=== PATIENT | male | born 1950 | race Caucasian/White ===

== ENCOUNTER 2016-11-18 05:31 | Day surgery (SDC) | payer BC ==
[~2016-11-18] VITALS: Ht 177.8 cm; Wt 85.5 kg
[~2016-11-18 05:31] MED LIST: LANOXIN 0.25M0.25 MG PO; LIPITOR 10MG10 MG PO; SYNTHROID0.05 MG/TA PO
[2016-11-18 06:03] VITALS: BP 145/70; PULSE 57; TEMP 97.4
[2016-11-18] MEDS ORDERED: MULTI VITAMINS1 TAB PO (06:17)
[2016-11-18] MEDS ORDERED: THE MEDICINE S200 M2 PO (06:18)
[2016-11-18] MEDS ORDERED: GLUCOSAMINE & C1 CA1 PO (06:18)
[2016-11-18] MEDS ORDERED: VITAMIN C500 MG PO (06:19)
[2016-11-18 08:45] VITALS: BP 151/83; PULSE 66; TEMP 97.3
[2016-11-18] MEDS ORDERED: NORCO 325 MG-51 TAB PO (08:58)
[2016-11-18] MEDS ORDERED: PYRIDIUM 100MG100 MG PO (08:58)
[2016-11-18 09:00] VITALS: BP 143/83; PULSE 65
== END 2016-11-18 09:55 | disposition home or self-care (01) ==
LOC: SDCO 05:31
DX: D09.0 Carcinoma in situ of bladder (principal); R31.9 Hematuria, unspecified; I48.91 Unspecified atrial fibrillation; F17.210 Nicotine dependence, cigarettes, uncomplicated; E78.5 Hyperlipidemia, unspecified; I10 Essential (primary) hypertension
CPT/HCPCS: C1769; C2617; J1100; J1885; J2704; J3010; J7120; Q9967

== ENCOUNTER 2017-03-20 13:48 | Day surgery (SDC) | payer BC ==
[2017-03-20] VITALS (7 sets, daily range): BP systolic 128–155; BP diastolic 69–81; PULSE 49–58; TEMP 98–98.4
[~2017-03-20] VITALS: Ht 177.8 cm; Wt 84.5 kg
[~2017-03-20 13:48] MED LIST changes: +GLUCOSAMINE & C1 CA1 PO; +MULTI VITAMINS1 TAB PO; +NORCO 325 MG-51 TAB PO; +PYRIDIUM 100MG100 MG PO; +THE MEDICINE S200 M2 PO; +VITAMIN C500 MG PO
[2017-03-20] MEDS ORDERED: SYNTHROID0.1 MG/TAB PO (14:56)
[2017-03-20] MEDS ORDERED: OCUVITE1 TA1 PO (15:05)
== END 2017-03-20 20:30 | disposition home or self-care (01) ==
LOC: SDCO 13:48 → SURG 17:45 → SDCO 20:30
DX: C67.5 Malignant neoplasm of bladder neck (principal); D07.5 Carcinoma in situ of prostate; I10 Essential (primary) hypertension; F17.210 Nicotine dependence, cigarettes, uncomplicated; G47.33 Obstructive sleep apnea (adult) (pediatric); I35.0 Nonrheumatic aortic (valve) stenosis; E78.5 Hyperlipidemia, unspecified; I48.91 Unspecified atrial fibrillation
CPT/HCPCS: OP; C1769; J0690; J1100; J2704; J3010; J7120

== ENCOUNTER 2017-04-11 12:03 | Day surgery (SDC) | payer BC ==
[~2017-04-11] VITALS: Ht 177.8 cm; Wt 82.6 kg
[~2017-04-11 12:03] MED LIST changes: +OCUVITE1 TA1 PO; +SYNTHROID0.1 MG/TAB PO
[2017-04-11 12:32] VITALS: BP 140/86; PULSE 60; TEMP 97.4
[2017-04-11 17:00] VITALS: BP 141/87; PULSE 52; TEMP 97.9
[2017-04-11 17:15] VITALS: BP 147/63; PULSE 58; TEMP 98
[2017-04-11 17:30] VITALS: BP 138/76; PULSE 55; TEMP 97.9
[2017-04-11 17:45] VITALS: BP 155/82; PULSE 51; TEMP 97.7
[2017-04-11 23:12] VITALS: BP 107/47; PULSE 54; TEMP 98.2
[2017-04-12 03:31] VITALS: BP 106/60; PULSE 58; TEMP 97.6
== END 2017-04-12 08:45 | disposition home or self-care (01) ==
LOC: SDCO 12:03 → MEDICAL 18:52 → SDCO 04-12 08:45
DX: D09.0 Carcinoma in situ of bladder (principal); Z85.46 Personal history of malignant neoplasm of prostate; F17.210 Nicotine dependence, cigarettes, uncomplicated; Z80.9 Family history of malignant neoplasm, unspecified; I10 Essential (primary) hypertension; G47.33 Obstructive sleep apnea (adult) (pediatric); E03.9 Hypothyroidism, unspecified
CPT/HCPCS: OP; C1769; C2617; J0690; J1100; J1885; J2270; J2405; J2704; J3010; J7030